=== PATIENT | female | born 1995 | race Caucasian/White ===

== ENCOUNTER 2025-01-15 17:23 | Emergency (ER) | payer OTHER ==
[~2025-01-15] VITALS: Ht 172.7 cm; Wt 83.0 kg
[2025-01-15 17:31] VITALS: BP 101/77; O2SAT 97
[2025-01-15 17:37] VITALS: PULSE 78; RESP 20; O2SAT 98
== END 2025-01-15 20:26 | disposition home or self-care (01) ==
LOC: ER 17:23
DX: Z11.3 Encounter for screening for infections with a predominantly sexual mode of transmission (principal); E11.9 Type 2 diabetes mellitus without complications
CPT/HCPCS: 82962; 99282